=== PATIENT | female | born 2000 | race Caucasian/White ===

== ENCOUNTER 2019-02-01 19:44 | Emergency (ER) | payer SELFPAY ==
--- NOTE | 2019-02-01 21:17 | EDM.PDOC ---
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 about 5 1/2 weeks along. started some bleeding when went to bathroom, but not heavy. did have some cramps but nothing severe. mother states pt bleed very little and she doesn't use pads and not enough to soak a tampon. 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: Psychiatric History: Reports: Anxiety, Depression - Past Surgical History Other HEENT Surgeries/Procedures: wisdon teeth removed Social & Family History - Family History Family Medical History: Noncontributory Other HEENT Family History: thyroid disorder- mother Oncologic: Reports: Colon, Liver, Lung - Tobacco Use Smoking Status *Q: Unknown Ever Smoked Second Hand Smoke Exposure: Yes - Caffeine Use Caffeine Use: Reports: Coffee, Energy Drinks, Soda - Recreational Drug Use Recreational Drug Use: Yes Recreational Drug Type: Reports: Marijuana/Hashish Recreational Drug Use Frequency: Socially ED ROS GENERAL - Review of Systems Review Of Systems: ROS reveals no pertinent complaints other than HPI. ED EXAM - Physical Exam Exam: See Below Exam Limited By: No Limitations General Appearance: Alert, WD/WN, No Apparent Distress Ears: Hearing Grossly Normal Throat/Mouth: Normal Voice, No Airway Compromise Head: Atraumatic Neck: Non-Tender, Full Range of Motion Respiratory/Chest: No Respiratory Distress Cardiovascular: Regular Rate, Rhythm GI/Abdominal Exam: Soft, Non-Tender Neurological: Alert, Oriented, Normal Cognition, Normal Gait, No Motor/Sensory Deficits Psychiatric: Normal Affect, Normal Mood Skin Exam: Warm, Dry, Normal Color Lymphatic: No Adenopathy Course - Vital Signs Last Recorded V/S: Last Vital Signs Temp 37.1 C 02/01/19 20:14 Pulse 97 02/01/19 20:14 Resp 16 02/01/19 20:14 BP 122/57 L 02/01/19 20:14 Pulse Ox 100 02/01/19 20:14 - Orders/Labs/Meds Orders: Active Orders 24 hr Category Date Time Status OB Ltd 1 or More Fetus [US] Urgent Exams 02/01/19 21:31 Taken OB Transvaginal [US] Urgent Exams 02/01/19 21:31 Taken Labs: Laboratory Tests 02/01/19 02/01/19 Range/Units 20:25 20:25 HCG, Qual Positive HCG, Quant > 1359 H (0-25) mIU/ml Beta HCG, Quant 19954 mIU/ml - Re-Assessments/Exams Free Text/Narrative Re-Assessment/Exam: 02/01/19 22:35 results discussed with pt & mother. Departure - Departure Time of Disposition: 22:35 Disposition: Home, Self-Care 01 Condition: Good Clinical Impression: First trimester bleeding - Discharge Information Instructions: Vaginal Bleeding During , First Trimester, [id number] Forms: ED Department Discharge Additional Instructions: 1) rest and avoid bending lifting straining 2) follow up with OB doctor 3) recheck if there is any change or concern - My Orders Last 24 Hours: My Active Orders 02/01/19 21:31 OB Ltd 1 or More Fetus [US] Urgent OB Transvaginal [US] Urgent - Assessment/Plan Last 24 Hours: My Active Orders 02/01/19 21:31 OB Ltd 1 or More Fetus [US] Urgent OB Transvaginal [US] Urgent
== END 2019-02-01 22:40 | disposition home or self-care (01) ==
LOC: DL.ED 19:44
DX: O20.9 Hemorrhage in early pregnancy, unspecified (principal); Z3A.01 Less than 8 weeks gestation of pregnancy
CPT/HCPCS: 36415; 76815; 76817; 84702; 84703; 99284-25

== ENCOUNTER 2022-06-27 21:12 | Emergency (ER) | payer MEDICAID ==
[2022-06-27] MEDS ORDERED: Ibuprofen 600 MG Tab PO ONE (22:36)
== END 2022-06-27 23:36 | disposition home or self-care (01) ==
LOC: DL.ED 21:12
DX: S63.501A Unspecified sprain of right wrist, initial encounter (principal); W01.0XXA Fall on same level from slipping, tripping and stumbling without subsequent striking against object, initial encounter
CPT/HCPCS: 73090-RT; 99282; 99283; A9270-GY

== ENCOUNTER 2023-12-06 19:46 | Emergency (ER) | payer MEDICAID, OTHER ==
[2023-12-06] MEDS: Sodium Chloride 0.9% 10 ML Syringe FLUSH PRN (20:20)
[2023-12-06] MEDS: Sodium Chloride 0.9% 1,000 ML IV ONE (20:29)
[2023-12-06] MEDS: Ketorolac 30 MG/ML SDV IVPUSH ONE (20:30)
[2023-12-06] MEDS: Ondansetron 4 MG/2 ML SDV IVPUSH ONE (20:31)
[2023-12-06 20:32] LABS: BASOPHILS PERCENT AUTO 0.2 % (0.0-1.0); EOSINOPHILS PERCENT AUTO 1.9 % (1.0-3.0); HEMATOCRIT 39.6 % (37.0-47.0); HEMOGLOBIN 13.2 g/dL (12.0-16.0); LYMPHOCYTES PERCENT AUTO 14.5 % (20.5-50.1); MEAN CORPUSCULAR HEMOGLOBIN 30.7 pg (27.0-34.0); MEAN CORPUSCULAR HGB CONC 33.3 g/dL (33.0-35.0); MEAN CORPUSCULAR VOLUME 92.1 fL (80-100); MONOCYTES PERCENT AUTO 7.3 % (2-8); NEUTROPHILS PERCENT AUTO 76.1 % (42.2-75.2); PLATELET COUNT,PLT 261 10^3/uL (150-450); WHITE BLOOD CELL COUNT,WBC 12.3 10^3/uL (5.0-10.0)
[2023-12-06 20:50] LABS: A/G RATIO 1.3; ALANINE AMINOTRANSFERASE,ALT 23 U/L (14-59); ALBUMIN 4.3 g/dL (3.4-5.0); ALKALINE PHOSPHATASE 70 U/L (46-116); ANION GAP 14.8 mEq/L (7-13); ASPARTATE AMNIOTRANSFERASE,AST 12 U/L (15-37); BILIRUBIN TOTAL 0.7 mg/dL (0.2-1.0); BLOOD UREA NITROGEN,BUN 9 mg/dL (7-18); BUN/CREATININE RATIO 12.3 (No establ ref range); C-REACTIVE PROTEIN 1.17 ng/dL (<=0.50); CALCIUM 9.1 mg/dL (8.5-10.1); CARBON DIOXIDE,CO2 28 mmol/L (21-32); CHLORIDE,CL 103 mmol/L (98-107); CREATININE 0.73 mg/dL (0.55-1.02); EST CRCL DRUG DOSING (CG) 106.93 mL/min; GLUCOSE RANDOM 86 mg/dL (70-99); POTASSIUM,K 3.8 mmol/L (3.5-5.1); PROTEIN TOTAL,TP 7.5 g/dL (6.4-8.2); SODIUM,NA 142 mmol/L (136-145)
[2023-12-06 20:51] LABS: ESTIMATED GFR 118 mL/min (>=60)
[2023-12-06 20:54] LABS: LACTIC ACID 0.7 mmol/L (0.4-2.0)
[2023-12-06] MEDS: fentaNYL 100 MCG/2 ML SDV IVPUSH ONE (21:14)
[2023-12-06] MEDS: cefTRIAXone 2 GM Vial IVPUSH ONE (21:48)
[2023-12-06 22:05] LABS: GLUCOSE,CSF 49 mg/dL (40-70)
[2023-12-06] MEDS: Albuterol 0.083% 2.5 MG/3 ML Neb Soln NEB ONE (22:06)
[2023-12-06] MEDS: diphenhydrAMINE 50 MG/ML SDV IVPUSH ONE (22:06)
[2023-12-06] MEDS: Dexamethasone 4 MG/ML SDV IVPUSH ONE (22:11)
[2023-12-06 22:16] LABS: PROTEIN,CSF 53 mg/dL (15-45)
[2023-12-06 22:17] LABS: APPEARANCE CSF CLEAR; COLOR,CSF COLORLESS; TUBE NUMBER,CSF 0; TUBE VOLUME,CSF 1
[2023-12-06 22:18] LABS: RBC,CSF 1.1; WBC,CSF 1.7
== END 2023-12-06 22:51 | disposition home or self-care (01) ==
LOC: DL.ED 19:46
DX: B34.9 Viral infection, unspecified (principal); Z79.899 Other long term (current) drug therapy; Z86.16 Personal history of COVID-19
CPT/HCPCS: 36415; 70450; 80053; 82945; 83605; 84145; 84157; 85025; 86140; 87040; 87070; 87205; 89050; 94640; 96361; 96374; 96375; 99284; J0696; J1100; J1200; J1885; J2405; J3010; J7030; J3490; J7613-GY